=== PATIENT | male | born 1940 | race Caucasian/White ===

== ENCOUNTER → 2022-09-17 09:57 | Outpatient (CLI) | payer MEDICARE, OTHER, SELFPAY ==
[2017-09-15 09:36] VITALS: BMI 31.2
--- NOTE | 2022-09-17 | DI.RAD.S_ITS ---
PROCEDURE: FL GUIDED PICC PLACEMENT INDICATIONS: Malignant neoplasm of lower gum COMPARISON: None. FINDINGS: PICC was placed by the intravenous therapy team from the left side. Fluoroscopic spot film demonstrates the tip of PICC projecting to the area of lower SVC. IMPRESSION: Tip of PICC projects to the area of lower SVC. Dictated by: Timo Erwin M.D. on 09/19/2022 at 7:57 Approved by: Timo Erwin M.D. on 09/19/2022 at 7:57
== END ==
PROVIDERS: PCP Family Medicine; Referring Provider Internal Medicine; Visit Provider Internal Medicine
DX: C03.1 Malignant neoplasm of lower gum (principal)
CPT/HCPCS: 36573